=== PATIENT | male | born 1960 | race Caucasian/White ===

== ENCOUNTER 2022-07-03 14:46 | Emergency (ER) | payer BC ==
[2022-07-03 15:01] VITALS: BMI 43.5
[2022-07-03 15:32] LABS: HEMATOCRIT 42.6 % (35.4-49); HEMOGLOBIN 14.1 GM/dL (11.7-16.9); MCH 30.8 pg (25.7-33.7); MCHC 33.2 g/dl (32.0-35.9); MEAN CELL VOLUME 92.8 fl (80-96); MEAN PLT VOLUME 8.2 fl (7.5-11.1); PLATELET COUNT 189 10^3/uL (134-434); RBC 4.59 M/mm3 (4.00-5.60); RDW 14.5 % (11.9-15.9); WHITE BLOOD COUNT 8.4 K/mm3 (4.0-10.0)
[2022-07-03 15:43] LABS: INR 1.11 (0.83-1.09); PROTHROMBIN TIME (PATIENT) 12.9 SEC (9.7-13.0)
[2022-07-03 15:56] LABS: CALCIUM 9.4 mg/dL (8.5-10.1)
[2022-07-03 15:57] LABS: ALBUMIN 4.1 g/dl (3.4-5.0); BLOOD UREA NITROGEN 23.9 mg/dL (7-18); MAGNESIUM 2.3 mg/dL (1.8-2.4)
[2022-07-03 16:01] LABS: BILIRUBIN,TOTAL 0.6 mg/dL (0.2-1); TOT PROT 7.3 g/dl (6.4-8.2)
[2022-07-03 16:05] LABS: N-TERMINAL BNP 364.9 pg/ml (5-125)
[2022-07-03 19:34] VITALS: PULSE 38; RESP 20
[2022-07-03 21:39] VITALS: BP 150/76; TEMP 98.6
== END 2022-07-03 21:40 | disposition short-term general hospital (02) ==
LOC: JER 14:46
DX: I44.2 Atrioventricular block, complete (principal); R00.1 Bradycardia, unspecified
CPT/HCPCS: 0241U-QW; 36415; 71045-TC-FY; 80053; 80178; 83735; 83880; 84439; 84443; 84484; 85027; 85610; 93005; 93010; 93306-TC; 99285-25

== ENCOUNTER 2024-12-19 07:25 | Day surgery (SDC) | payer BC ==
[2024-12-14 15:04] VITALS: BMI 48.4
[2024-12-19 08:00] VITALS: RESP 18
[2024-12-19] MEDS ORDERED: PROPOFOL 20 ML ONE (09:13)
[2024-12-19 09:30] VITALS: TEMP 97.6
[2024-12-19 09:48] VITALS: BP 140/60; PULSE 62
== END 2024-12-19 09:48 | disposition home or self-care (01) ==
LOC: FASU-ENDO 07:25
PROVIDERS: ATTEND Internal Medicine Gastroenterology
PROC: 0DBC8ZX Excision of Ileocecal Valve, Via Natural or Artificial Opening Endoscopic, Diagnostic (ICD-10-PCS; principal; 2024-12-19 08:51)
DX: Z12.11 Encounter for screening for malignant neoplasm of colon (principal); K63.5 Polyp of colon; K64.8 Other hemorrhoids
CPT/HCPCS: 88305-TC